=== PATIENT | female | born 1970 | race Caucasian/White ===

== ENCOUNTER → 2017-08-12 | Outpatient (CLI) | payer OTHER ==
[~2017-08-12] MED LIST: ACET325 PO; ALEVE220 MG PO; BACL10 PO; CALCIUM CITRAT1 EAC6 PO; CLEM1.34; Citalopram HBr10 MG PO; DIVA250EC PO; DIVA500EC PO; DOCU100 PO; GABA300 PO; LAMO100 PO; MOTION RELIEF25 MG PO; OXYB5 PO; PSEU120ER PO; ROPI.25 PO
== END ==
LOC: OLS 17:00 → LAB SHORT 17:00
PROVIDERS: Nurse Practitioner Women's Health
DX: Z12.4 Encounter for screening for malignant neoplasm of cervix (principal); Z91.89 Other specified personal risk factors, not elsewhere classified
CPT/HCPCS: 87624; G0123